=== PATIENT | female | born 1985 ===

== ENCOUNTER 2025-02-12 06:06 | Day surgery (SDC) | payer BC, SELFPAY ==
[2025-01-27 11:39] LABS: Hematocrit 38.0 % (37.0-47.0); Hemoglobin 13.1 g/dL (12.0-16.0); Mean Corp Hgb Conc. 34.5 g/dL (33.0-37.0); Mean Corpuscular Volume 94.5 fL (81.0-99.0); Nucleated Red Blood Cells % 0 %; Platelet Count 243 10^3/uL (130-400); Red Cell Dist. Width 11.6 % (11.5-14.5)
[2025-01-27 12:15] LABS: ALT (SGPT) 14 U/L (0-35); AST (SGOT) 20 U/L (14-36); Albumin 4.3 g/dl (3.5-5.0); Alkaline Phosphatase 60 U/L (38-126); Blood Urea Nitrogen 10 mg/dl (7-17); Calcium 9.4 mg/dl (8.4-10.2); Carbon Dioxide 29 mmol/L (22-30); Chloride 101 mmol/L (98-107); Glucose 83 mg/dl (70-99); Potassium 3.8 mmol/L (3.5-5.1); Sodium 136 mmol/L (135-145); Total Protein 6.9 g/dl (6.3-8.2); eGFR > 60.00
[2025-01-27 14:06] VITALS: BMI 31.6
[2025-02-12] VITALS (10 sets, daily range): BP systolic 95–139; BP diastolic 50–89; BMI 31.6
[2025-02-12] MEDS: LOVENOX 40 MG SC (07:02)
[2025-02-12] MEDS: EMEND 40 MG PO (07:04)
[2025-02-12] MEDS: TYLENOL 1000 MG PO (07:04)
[2025-02-12] MEDS: VANCOCIN 200 IV (07:21)
[2025-02-12] MEDS: NORMOSOL-R/PLASMALYTE-A 1000 IV (07:21)
[2025-02-12] MEDS: ZOFRAN 4 MG IV (12:07)
[2025-02-12] MEDS: COMPAZINE 5 MG IV (12:44)
--- NOTE | 2025-02-12 14:29 | W.IMMPOSTOP ---
Surgical Immed Post Op Note
-
Primary Surgeon: LALY Junior MD
Assisting Surgeon:
Pre-op Diagnosis: Lipedema
Post-op Diagnosis: Same
Procedure Performed: Suction assisted lipectomy of bilateral lower extremities, above and below knee, anterior and posterior
Anesthesia Type: General
Specimen / Cultures: None
Estimated Blood Loss: 30 cc
Complications: None
Operative Findings: As expected
--- NOTE | 2025-02-12 14:29 | OR.RPT ---
Operative Report
Operative Report
Date of surgery: 02/12/2025
Surgeon: LALY Junior MD
Preoperative diagnosis:
1. Lipedema
2. Lipomatosis, not elsewhere classified
3. Swelling/edema
4. Adiposity, localized
Postoperative diagnosis: Same
Procedure:
1. Suction assisted lipectomy to the bilateral lower extremities, above and below knee, anterior and posterior
Anesthesia: General
Complications: None
EBL: 30 cc
Specimens: None
Indication for procedure: Patient is a 39-year-old female who was referred to me by her insurance company with a diagnosis of lipedema. She had undergone workup for both lymphedema and venous reflux, neither of which were the source of her
symptoms. She reported heaviness of her bilateral lower extremities, abnormal bruising, uncharacteristic tenderness to palpation. She reported a history of this in her family. Prior authorization was obtained confirming medical necessity of
utilizing suction assisted lipectomy as a primary surgical treatment option for lipedema. Risks of suction assisted lipectomy were reviewed at length including skin contour irregularities, skin laxity, abnormal scarring, skin loss, damage to deeper
structures, numbness, seroma, hematoma, need for repeat procedure or revisionary procedure. She understood these risks and desire to proceed. Importantly, we had a conversation about DVT PE risk including the need for early ambulation. She will
be given chemoprophylaxis perioperatively and is required to wear compression stockings and ambulate often during waking hours. She reported understanding of these risks. Additional conversation was had about the staged nature of these procedures.
Tumescent and lipo aspiration volumes will be capped to 5 L to limit the risk of fluid shifts and electrolyte abnormalities and allow this to be a safe outpatient procedure. She reported understanding of this.
Procedure in detail: Patient was identified preoperatively and the surgical site was confirmed to be the bilateral lower extremities both above and below the knee as well as anterior and posterior. The areas of relative adiposity were marked out as
well as the areas that she found most symptomatic. All questions were answered and consents were confirmed. Patient was taken back to the operating room and intubated supine on the stretcher. A Montes was placed. She was then rolled into the
prone position ensuring proper padding of all pressure points as well as maintaining eye protection. She was then prepped and draped in the usual sterile fashion using ChloraPrep solution. A timeout for patient safety was performed and was
confirmed the preoperative antibiotics been given, preoperative Lovenox have been administered in the calculation of lidocaine dosing was confirmed with anesthesia. A total of 4 L of dilute tumescent solution was available consisting of 1 L of
normal saline 50 cc of 1% lidocaine and 1 amp of epi. Additional tumescent consisted only of normal saline with 1 amp of epi. This kept her well within the safe constraints for tumescent administration. A series of access sites was made with a 15
blade and the tumescent solution was distributed over the bilateral posterior thighs and bilateral posterior calfs. An appropriate time was waited and an SAF E lipo aspiration protocol was followed. 4 mm cannula was used to separate the fat off
suction followed by aspiration and finally fat equilibration to prevent contour irregularity. This was performed equally and symmetrically in each of the 4 treatment areas of the posterior legs. Residual tumescent solution was manually expressed
and access sites were closed with 5-0 fast. Total of 2500 cc lipo aspirate was removed from the posterior legs in a one-to-one ratio with tumescent. The patient was then rolled into the supine position and the same procedure was performed after
reprepping and draping. A series of access sites were created over the anterior thighs and anterior lower extremities below the knee. Tumescent solution, a total of 2.5 L was distributed over the treatment areas. A SAF E sequence was then
followed for lipo aspiration and equilibration of the anterior bilateral lower extremities. An additional 2.5 L of lipo aspirate was removed. All access sites were closed with 5-0 fast after manually expressing residual fluid. Of note, manual
compression of the bilateral lower extremities was performed intermittently throughout the procedure. Bilateral Wayne wrap's were applied from the foot to the groin crease and the patient was extubated. All counts were correct at the end the case
and the patient tolerated well. Was performed without complication. She was taken the PACU for further care.
== END 2025-02-12 14:30 | disposition home or self-care (01) ==
LOC: SDS 06:06
PROVIDERS: ATTENDING PHYSICIAN Surgery Plastic and Reconstructive Surgery; FAMILY PHYSICIAN Family Medicine
DX: E88.2 Lipomatosis, not elsewhere classified (principal); R60.9 Edema, unspecified; E66.9 Obesity, unspecified; M79.605 Pain in left leg; M79.604 Pain in right leg
CPT/HCPCS: 15879; 36415; 80053; 85025; 93005

== ENCOUNTER → 2025-02-14 12:54 | Outpatient (REF) | payer BC, SELFPAY | LOC: RAD 12:54 | PROVIDERS: ATTENDING PHYSICIAN Surgery Plastic and Reconstructive Surgery; FAMILY PHYSICIAN Family Medicine | DX: R22.43 Localized swelling, mass and lump, lower limb, bilateral (principal) | CPT/HCPCS: 93970 ==